=== PATIENT | female | born 2000 | race Two or more races ===

== ENCOUNTER 2022-04-01 05:41 | Emergency (ER) | payer OTHER ==
[~2022-04-01] VITALS: Ht 152.4 cm; Wt 65.0 kg
[2022-04-01] MEDS ORDERED: TETANUS-DIPTH-ACEL PERTUSSIS 0.5ML SYR Tdap IM ONE (06:45)
[2022-04-01] MEDS ORDERED: CEPH-510 PO (10:27)
[2022-04-01] MEDS ORDERED: IBUP400T22 PO (10:27)
[2022-04-01 10:59] VITALS: BP 112/64
== END 2022-04-01 10:58 | disposition home or self-care (01) ==
LOC: ER 05:41
DX: S60.512A Abrasion of left hand, initial encounter (principal); S60.511A Abrasion of right hand, initial encounter; R51.9 Headache, unspecified; V43.52XA Car driver injured in collision with other type car in traffic accident, initial encounter; Y93.89 Activity, other specified; Y92.410 Unspecified street and highway as the place of occurrence of the external cause; Y99.8 Other external cause status
CPT/HCPCS: 70450; 72125; 73130; 90471; 90715